=== PATIENT | female | born 1990 | race Caucasian/White ===

== ENCOUNTER 2017-02-04 16:37 | Emergency (ER) | payer MEDICAID ==
--- NOTE | 2017-02-04 17:43 | ED Physician Chart ---
ED Chief Complaint/HPI - Patient Information Date Seen:: 02/04/17 Time Seen:: 17:00 Chief Complaint:: JAW PAIN History of Present Illness:: THIS IS A 26 YR OLD FEMALE WHO STATES THAT SHE FELL OFF A SKATE BOARD AND INJURED HER JAW THIS AM. SHE DENIES LOC AND DENIES ALL OTHER INJURIES. SHE DENIES ALL OTHER MEDICAL PROBLEMS. Allergies:: Allergies Allergy/AdvReac Type Severity Reaction Status Date / Time No Known Allergies Allergy Verified 02/04/17 16:51 Vitals:: Vital Signs - 8 hr 02/04/17 16:51 Temp 97.7 F HR 112 RR 17 BP 112/82 O2 Sat % 98 Historian:: Patient Review:: Nurse's Note Reviewed ED Review of Systems - Review of Systems General/Constitutional: No fever, No chills, No weight loss, No weakness, No diaphoresis, No edema, No loss of appetite Skin: No skin lesions, No rash, No bruising Head: No headache, No light-headedness Eyes: No loss of vision, No pain, No diplopia ENT: No earache, No nasal drainage, No sore throat, No tinnitus, Other (JAW PAIN ) Neck: No neck pain, No swelling, No thyromegaly, No stiffness, No mass noted Cardio Vascular: No chest pain, No palpitations, No PND, No orthopnea, No edema Pulmonary: No SOB, No cough, No sputum, No wheezing GI: No nausea, No vomiting, No diarrhea, No pain, No melena, No hematochezia, No constipation, No hematemesis G/U: No dysuria, No frequency, No hematuria Musculoskeletal: No bone or joint pain, No back pain, No muscle pain Endocrine: No polyuria, No polydipsia Psychiatric: No prior psych history, No depression, No anxiety, No suicidal ideation Hematopoietic: No bruising, No lymphadenopathy Allergic/Immuno: No urticaria, No angioedema Neurological: No syncope, No focal symptoms, No weakness, No paresthesia, No headache, No seizure, No dizziness, No confusion, No vertigo ED Past Medical History - Past Medical History Obtainable: Yes Past Medical History: No significant medical hx Family History: None Social History: Non Smoker, No Alcohol, No Drug Use Surgical History: None Psychiatricy History: None Medication: Reviewed Family Medical History - Family Member Mother Ethnicity: Living Status: Still Living ED Physical Exam - Physical Examination General/Constitutional: Awake, Well-developed, well-nourished, Alert, No distress, GCS 15, Non-toxic appearing, Ambulatory Head: Atraumatic Eyes: Lids, conjuctiva normal, PERRL, EOMI Skin: Nl inspection, No rash, No skin lesions, No ecchymosis, Well hydrated, No lymphadenopathy ENMT: External ears, nose nl, Nasal exam nl, Lips, teeth, gums nl Other ENMT comments:: BILATERAL MANDIBLE SWELLING AND TENDERNESS WITH DIFFICULTY OPENING THE MOUTH. Neck: Nontender, Full ROM w/o pain, No JVD, No nuchal rigidity, No bruit, No mass, No stridor Respiratory: Nl effort/Exclusion, Clear to Auscultation, No Wheeze/Rhonchi/Rales Cardio Vascular: RRR, No murmur, gallop, rubs, NL S1 S2 GI: No tenderness/rebounding/guarding, No organomegaly, No hernia, Normal BS's, Nondistended, No mass/bruits, No McBurney tenderness : No CVA tenderness Extremities: No tenderness or effusion, Full ROM, normal strength in all extremities, No edema, Normal digits & nails Neuro/Psych: Alert/oriented, DTR's symmetric, Normal sensory exam, Normal motor strength, Judgement/insight normal, Mood normal, Normal gait, No focal deficits Misc: normal gait, Normal back, No paraspinal tenderness ED Assessment - Assessment General Assessment: FRACTURED JAW ED Septic Shock - . Is Septic Shock (SBP<90, OR Lactate>4 mmol\L) present?: No - <6hrs of presentation: Vital Signs: Vital Signs - 8 hr 02/04/17 16:51 Temp 97.7 F HR 112 RR 17 BP 112/82 O2 Sat % 98 ED Reassessment (Disposition) - Diagnosis Diagnosis:: FRACTURE MANDIBLE - Aftercare/Follow up Instructions Aftercare/Follow-Up Instructions:: Counseled pt regarding lab results/diagnosis & need follow up, Refer to Discharge Instructions, Counseled pt & family regarding lab results/diagnosis & need follow up - Patient Disposition Discharge/Transfer:: Home Condition at Disposition:: Improved ED Discharge Plan - Patient Disposition Admit/Discharge/Transfer: PT DISCHARGED HOME Condition at Disposition: Improved Additional Instructions: TO SEE HER PMD FOR AN ENT REFERRAL WITH A COPY OF THE X-RAYS
--- NOTE | 2017-02-05 08:19 | Diagnostic Imaging Report ---
Mandible series 5 views Indication: Trauma Comparison: none Findings: There is a nondisplaced fracture of the left mandibular angle extending to the left mandibular body with extension of the left molar tooth. No air-fluid levels in the paranasal sinuses. Orbital floor is are preserved. IMPRESSION: Nondisplaced fracture of the left mandibular angle extending to the left mandibular body. Consider further assessment with CT facial bones
== END 2017-02-04 19:07 | disposition home or self-care (01) ==
LOC: ER 16:37
DX: S02.609A Fracture of mandible, unspecified, initial encounter for closed fracture (principal); V00.131A Fall from skateboard, initial encounter; Y93.89 Activity, other specified; Y92.89 Other specified places as the place of occurrence of the external cause; Y99.8 Other external cause status
CPT/HCPCS: 70100-TC-LT; 70100-TC-RT; 81025-TC; Z7502